=== PATIENT | female | born 1990 | race Two or more races ===

== ENCOUNTER 2019-08-28 10:59 | Emergency (ER) | payer OTHER ==
[~2019-08-28] VITALS: Ht 157.5 cm; Wt 92.0 kg
[2019-08-28] MEDS ORDERED: tylenol (12:15)
[2019-08-28] MEDS ORDERED: KETOROLAC 30MG/ML VIAL IV STA (16:45)
[2019-08-28] MEDS ORDERED: SODIUM CHLORIDE 0.9% 1,000 ML IV ONE (16:45)
[2019-08-28] MEDS ORDERED: ACETAMINOPHEN 325MG TABLET PO STA (16:45)
[2019-08-28] MEDS ORDERED: SODIUM CHLORIDE 0.9% 1000ML BAG (SEPSIS BOLUS) IV ONE (16:45)
[2019-08-28 17:48] LABS: BASOPHILS % 0.2 % (0.0-2.0); HEMATOCRIT. 39.5 % (36.0-48.0); HEMOGLOBIN. 13.3 g/dL (12.0-16.0); LYMPHOCYTES % 12.4 % (20.0-50.0); MEAN CORPUSCULAR HEMOGLOBIN 27.5 pg (28.0-32.0); MEAN CORPUSCULAR VOLUME 81.7 fL (81.0-99.0); MEAN PLATELET VOLUME 8.2 fl (7.4-10.4); MONOCYTES % 11.8 % (2.0-8.0); NEUTROPHILS % 75.6 % (40.0-76.0); PLATELET 220 x1000/uL (130-400); RED BLOOD CELL COUNT 4.84 mill/uL (4.2-5.4); RED CELL DISTRIBUTION WIDTH 12.8 % (11.6-14.6)
[2019-08-28 17:54] LABS: CHLORIDE 102 mEq/L (98-107)
[2019-08-28 17:57] LABS: INR 1.1; PROTHROMBIN TIME 11.6 sec (9.6-11.0)
[2019-08-28 17:59] LABS: ETHANOL BLOOD < 10 mg/dL
[2019-08-28 18:02] LABS: HCG SCREEN NEGATIVE
[2019-08-28 19:33] LABS: CLARITY URINE CLOUDY (CLEAR); COLOR URINE YELLOW (YELLOW); KETONES URINE 2+ (NEGATIVE); LEUKOCYTE ESTERASE URINE NEGATIVE (NEGATIVE); NITRITE URINE NEGATIVE (NEGATIVE); OCCULT BLOOD URINE TRACE (NEGATIVE); PROTEIN URINE NEGATIVE (NEGATIVE); SPECIFIC GRAVITY URINE 1.009 (1.005-1.030)
[2019-08-28 19:43] LABS: *AMPHETAMINES SCREEN URINE NEGATIVE (NEGATIVE); *BARBITURATES SCREEN URINE NEGATIVE (NEGATIVE); *BENZODIAZEPINES SCREEN URINE NEGATIVE (NEGATIVE); *COCAINE SCREEN URINE NEGATIVE (NEGATIVE); CANNABINOID URINE SCREEN NEGATIVE (NEGATIVE); METHADONE URINE SCREEN NEGATIVE (NEGATIVE); PHENCYCLIDINE URINE SCREEN NEGATIVE (NEGATIVE)
[2019-08-28 19:44] LABS: OPIATES URINE SCREEN NEGATIVE (NEGATIVE)
[2019-08-28 21:30] VITALS: BP 133/71
== END 2019-08-28 21:40 | disposition home or self-care (01) ==
LOC: ER 10:59
DX: N39.0 Urinary tract infection, site not specified (principal); J40 Bronchitis, not specified as acute or chronic; B34.9 Viral infection, unspecified; R53.1 Weakness; M54.5 Low back pain; R11.2 Nausea with vomiting, unspecified; Z98.890 Other specified postprocedural states
CPT/HCPCS: 36415; 71045; 74176; 80053; 80305; 80320; 81003; 81025; 83605; 84145; 84443; 84484; 84703; 85025; 85610; 87040; 87086; 87804; 96361; 96374; 99284; J1885; J7030; G0480

== ENCOUNTER 2022-11-29 16:53 | Emergency (ER) | payer OTHER ==
[~2022-11-29] VITALS: Ht 157.5 cm; Wt 87.0 kg
[~2022-11-29 16:53] MED LIST: tylenol
[2022-11-29 16:58] VITALS: BP 141/76
[2022-11-29 17:23] LABS: BASOPHILS % 0.3 % (0.0-2.0); EOSINOPHILS % 0.9 % (0.0-5.0); HEMATOCRIT. 41.3 % (36.0-48.0); HEMOGLOBIN. 13.2 g/dL (12.0-16.0); LYMPHOCYTES % 28.5 % (20.0-50.0); MEAN CORPUSCULAR HEMOGLOBIN 23.6 pg (28.0-32.0); MEAN CORPUSCULAR VOLUME 73.7 fL (81.0-99.0); MEAN PLATELET VOLUME 7.9 fl (7.4-10.4); MONOCYTES % 6.5 % (2.0-8.0); NEUTROPHILS % 63.8 % (40.0-76.0); PLATELET 337 x1000/uL (130-400); RED CELL DISTRIBUTION WIDTH 22.8 % (11.6-14.6)
[2022-11-29 17:26] LABS: CHLORIDE 106 mEq/L (98-107)
[2022-11-29 17:38] LABS: PROTHROMBIN TIME 10.3 sec (9.6-11.0)
[2022-11-29 17:41] LABS: PLATELET ESTIMATE NORMAL
== END 2022-11-29 22:20 | disposition home or self-care (01) ==
LOC: ER 16:53
DX: R42 Dizziness and giddiness (principal); Z98.890 Other specified postprocedural states
CPT/HCPCS: 36415; 71045; 80053; 81025; 84484; 85025; 93005; 99285

== ENCOUNTER 2024-10-31 23:22 | Emergency (ER) | payer OTHER ==
[~2024-10-31] VITALS: Ht 157.5 cm; Wt 100.0 kg
[2024-10-31 23:28] VITALS: TEMP 36.7; O2SAT 100
[2024-10-31 23:59] LABS: BASOPHILS % 1.2 % (0.0-2.0); DIFFERENTIAL COMMENT 0; EOSINOPHILS % 1.3 % (0.0-5.0); HEMATOCRIT. 43.7 % (36.0-48.0); LYMPHOCYTES % 33.3 % (20.0-50.0); MEAN CORPUSCULAR HEMOGLOBIN 24.7 pg (28.0-32.0); MEAN CORPUSCULAR VOLUME 77.3 fL (81.0-99.0); MEAN PLATELET VOLUME 7.7 fl (7.4-10.4); MONOCYTES % 12.2 % (2.0-8.0); PLATELET 325 x1000/uL (130-400); RED BLOOD CELL COUNT 5.65 mill/uL (4.2-5.4); RED CELL DISTRIBUTION WIDTH 15.4 % (11.6-14.6)
[2024-11-01 00:09] LABS: PROTHROMBIN TIME 10.6 sec (9.6-11.0)
[2024-11-01 00:10] LABS: HCG SCREEN NEGATIVE
[2024-11-01 00:18] LABS: CHLORIDE 104 mEq/L (98-107); POTASSIUM 3.4 mEq/L (3.5-5.1); SODIUM 140 mEq/L (136-145)
[2024-11-01 00:20] LABS: CARBON DIOXIDE 23 mEq/L (21-32)
[2024-11-01 00:24] LABS: CREATININE 0.7 mg/dL (0.6-1.0); GLUCOSE 107 mg/dL (70-105); UREA NITROGEN BLOOD 7 mg/dL (9-23)
[2024-11-01] MEDS: ONDANSETRON HCL 4MG/2ML INJ IV ONE (00:56)
[2024-11-01] MEDS: KETOROLAC 30MG/ML VIAL IV ONE (00:56)
[2024-11-01] MEDS ORDERED: IOHEXOL-300 100 ML BOTTLE ONE (02:10)
[2024-11-01] MEDS ORDERED: NAPR-1486 MT (02:26)
[2024-11-01] MEDS ORDERED: LOPE2CAP MT (02:26)
[2024-11-01 02:42] VITALS: BP 157/98; PULSE 99; RESP 18; O2SAT 99
== END 2024-11-01 02:44 | disposition home or self-care (01) ==
LOC: ER 23:22
DX: R19.7 Diarrhea, unspecified (principal); Z79.1 Long term (current) use of non-steroidal anti-inflammatories (NSAID)
CPT/HCPCS: 99285; 80048; 84703; 83690; 85025; 85610; 36415; 74177; 96374; J1885; Q9967